=== PATIENT | female | born 1990 | race Caucasian/White ===

== ENCOUNTER 2016-10-29 06:55 | Emergency (ER) | payer OTHER ==
[2016-10-29] MEDS ORDERED: SODIUM CHLORIDE 0.9% 1,000 ML ONE (07:54)
[2016-10-29] MEDS ORDERED: MECLIZINE HCL 25 MG TABLET ONE (07:54)
[2016-10-29] MEDS ORDERED: METHYLPRED SOD SUCCINATE 125 MG VIAL ONE (07:54)
[2016-10-29] MEDS ORDERED: PROMETHAZINE HCL 25 MG/ML VIAL ONE (07:54)
[2016-10-29] MEDS ORDERED: FAMOTIDINE 10 MG/ML 2ML VIAL ONE (07:55)
[2016-10-29 08:01] LABS: ABSOLUTE NEUTROPHIL COUNT 6.1 K/mm3 (1.8-7.7); BASO % 0.2 % (0.2-1.0); EOS # 0.1 (0.0-0.5); EOS % 0.6 % (0.9-2.9); HEMATOCRIT 44.7 % (37.0-47.0); HEMOGLOBIN 14.4 gm/l (12.0-16.0); IMM NEUT% 0.4 % (0-1); LYMPH # 1.8 (1.0-4.8); LYMPH % 21.3 % (15-45); MEAN CELL VOLUME 85.6 fl (81.0-99.0); MEAN CORPUSCULAR HEMOGLOBIN 27.6 pg (27.0-31.0); MEAN CORPUSCULAR HGB CONC 32.2 g/dl (33.0-37.0); MEAN PLATELET VOLUME 11.8 fl (7.4-10.4); MONO # 0.3 (0.0-0.8); MONO % 3.8 % (4-12); NEUT % 73.7 % (43-75); PLATELET COUNT 251 K/mm3 (130-400); RED CELL DISTRIBUTION WIDTH 13.5 % (11.5-14.5)
[2016-10-29 08:06] LABS: URINE APPEARANCE HAZY; URINE BILIRUBIN NEGATIVE (NEGATIVE); URINE BLOOD TRACE (NEGATIVE); URINE COLOR YELLOW; URINE GLUCOSE (UA) NEGATIVE (NEGATIVE); URINE LEUKOCYTE ESTERASE TRACE (NEGATIVE); URINE NITRITE NEGATIVE (NEGATIVE); URINE PROTEIN NEGATIVE (NEGATIVE); URINE UROBILINOGEN NORMAL (0-1 mg/dl)
[2016-10-29 08:12] LABS: URINE BACTERIA FEW; URINE MUCUS 2+
[2016-10-29 08:21] LABS: ALB/GLOB RATIO 1.1 (>1.0); ALBUMIN 4.2 gm/dL (3.5-5.7); CALCIUM 9.6 mg/dL (8.6-10.3)
--- NOTE | 2016-10-29 08:58 | CT ---
HEAD CT WITHOUT CONTRAST HISTORY: Vertigo. No intravenous contrast administered. Contiguous axial images acquired from skull base to vertex. COMPARISON:None. BRAIN VOLUME:Grossly unremarkable for patient age. VENTRICULAR SIZE:No gross ventriculomegaly. FOCAL MASS EFFECT:None. Specifically, no gross posterior fossa mass effect. ACUTE INTRACRANIAL HEMORRHAGE:None. CALVARIUM:Grossly intact. VISIBLE PARANASAL SINUSES AND MASTOID AIR CELLS: Effacement of left ethmoid air cells. No tympanomastoid effusion. IMPRESSION: No gross mass effect, ventriculomegaly, or acute intracranial hemorrhage. Findings compatible with left-sided ethmoid sinusitis. Results were electronically transmitted to the electronic medical record at 10/29/2016 at 0854 hours.
--- NOTE | 2016-10-29 09:26 | RAD ---
Exam: Two-view chest COMPARISON: 06/30/2014 INDICATION: Cough for 5 months. FINDINGS: PA and lateral views of the chest were obtained. Cardiac silhouette is within normal limits and stable. Lungs normally inflated. There is no focal airspace disease or pleural effusion. Bones of the chest wall within normal limits. IMPRESSION: Negative two-view chest.
== END 2016-10-29 10:28 | disposition home or self-care (01) ==
LOC: ED 06:55
DX: H81.10 Benign paroxysmal vertigo, unspecified ear (principal); R11.2 Nausea with vomiting, unspecified; R19.7 Diarrhea, unspecified; R05 Cough